=== PATIENT | male | born 1995 | race Caucasian/White ===

== ENCOUNTER 2019-11-18 01:59 | Emergency (ER) | payer OTHER ==
[~2019-11-18] VITALS: Ht 172.7 cm; Wt 84.8 kg
[2019-11-18 02:02] VITALS: Ht 172.7 cm; Wt 84.8 kg
[2019-11-18 03:01] VITALS: BP 110/71
== END 2019-11-18 03:01 | disposition other institution (70) ==
LOC: ED 01:59
DX: Z02.89 Encounter for other administrative examinations (principal)